=== PATIENT | male | born 1980 | race American Indian/Alaskan Native ===

== ENCOUNTER 2020-07-08 08:33 | Outpatient (CLI) | payer OTHER ==
--- NOTE | 2020-07-08 13:49 | Nuclear Medicine Report ---
PARATHYROID SCAN HISTORY: Hypercalcemia, evaluate function of parathyroid glands COMPARISON: None. TECHNIQUE: Following the intravenous administration of [id number], early and delayed anterior a nd oblique images of the neck and upper thorax were acquired. RADIOPHARMACEUTICAL: 20 mCi of [id number] FINDINGS: EARLY IMAGING: Diffuse symmetric physiologic thyroid activity. DELAYED IMAGING: Near complete symmetric washout from the normal thyroid tissue. No abnormal thoraci c activity. Additional Findings: None. IMPRESSION: 1. No significant abnormality. No parathyroid adenoma is detected on nuclear medicine. Signer Name: Silas Dao Jr, MD Signed: 07/08/2020 1:45 PM Workstation Name: [id number]
== END 2020-07-08 08:34 | disposition home or self-care (01) ==
LOC: NM 08:33
PROVIDERS: ATTEND Family Medicine
DX: E83.52 Hypercalcemia (principal)
CPT/HCPCS: 78070; A9500